=== PATIENT | male | born 1995 | race Caucasian/White ===

== ENCOUNTER 2019-02-12 03:20 | Emergency (ER) | payer SELFPAY ==
[~2019-02-12] VITALS: Ht 152.4 cm; Wt 63.6 kg
[~2019-02-12 03:20] MED LIST: HYDR1TAB PO; OXC5T PO; PRD20T PO; PRM5C60 TP
[2019-02-12] MEDS ORDERED: LACTATED RINGERS 1,000 ML IV ONE (03:27)
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
[2019-02-12 03:36] LABS: HEMOGLOBIN 15.4 G/DL (13.3-17.7); MEAN PLATELET VOLUME 10.1 FL (7.4-10.4); RED CELL DISTRIBUTION WIDTH 13.9 % (10.0-14.5); WHITE BLOOD COUNT 10.9 10^3/uL (4.3-11.0)
[2019-02-12] MEDS ORDERED: TETANUS,DIPTH,PERTUSS P/F (BOOSTRIX) 0.5 ML VIAL IM ONE (03:45)
[2019-02-12 03:57] LABS: ALANINE AMINOTRANSFERASE 11 U/L (0-55); ALBUMIN 4.9 GM/DL (3.2-4.5); ALKALINE PHOSPHATASE 85 U/L (40-136); BILIRUBIN,DIRECT 0.1 MG/DL (0.0-0.3); BILIRUBIN,INDIRECT 0.2 MG/DL; BILIRUBIN,TOTAL 0.3 MG/DL (0.1-1.0); BUN/CREATININE RATIO 9; CALCIUM 9.1 MG/DL (8.5-10.1); CARBON DIOXIDE 17 MMOL/L (21-32); CHLORIDE 111 MMOL/L (98-107); CREATININE SERUM 1.24 MG/DL (0.60-1.30); GFR ESTIMATED > 60; GLUCOSE 94 MG/DL (70-105); POTASSIUM 3.1 MMOL/L (3.6-5.0); SODIUM 144 MMOL/L (135-145)
--- NOTE | 2019-02-12 04:37 | NUR ---
Cervical collar cleared by Dr. Navarrete @ 1112.
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
[2019-02-12 04:48] LABS: BILIRUBIN,URINE NEGATIVE (NEGATIVE); CLARITY,URINE CLEAR; COLOR,URINE YELLOW; GLUCOSE, URINE (UA) NEGATIVE (NEGATIVE); KETONES,URINE NEGATIVE (NEGATIVE); LEUKOCYTE ESTERASE ,URINE NEGATIVE (NEGATIVE); NITRITE,URINE NEGATIVE (NEGATIVE); PH,URINE 6 (5-9); PROTEIN,URINE 2+ (NEGATIVE); UROBILINOGEN,URINE NORMAL (NORMAL)
[2019-02-12 05:02] LABS: AMPHETAMINE SCREEN, URINE NEGATIVE (NEGATIVE); BACTERIA,URINE TRACE /HPF; BARBITURATE SCREEN URINE NEGATIVE (NEGATIVE); BENZODIAZEPINES SCREEN URINE NEGATIVE (NEGATIVE); CANNABINOID SCREEN, URINE POSITIVE (NEGATIVE); COCAINE SCREEN URINE NEGATIVE (NEGATIVE); METHADONE STAT NEGATIVE (NEGATIVE); METHAMPHETAMINE SCREEN URINE S NEGATIVE (NEGATIVE); OPIATE SCREEN URINE NEGATIVE (NEGATIVE); OXYCODONE STAT NEGATIVE (NEGATIVE); PROPOXYPHENE STAT NEGATIVE (NEGATIVE); SQUAMOUS EPITHELIAL CELL,UR RARE /HPF; TRICYCLIC ANTIDEPRESSANTS SCRE NEGATIVE (NEGATIVE); WBC,URINE RARE /HPF
[2019-02-12 05:03] LABS: HYALINE CASTS, URINE RARE /LPF
[2019-02-12 05:11] VITALS: BP 114/83
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
== END 2019-02-12 05:12 ==
LOC: EDUNIT# 03:20 → ER 03:22
DX: S01.01XA Laceration without foreign body of scalp, initial encounter (principal); F90.9 Attention-deficit hyperactivity disorder, unspecified type; F41.9 Anxiety disorder, unspecified; F17.210 Nicotine dependence, cigarettes, uncomplicated; R40.2142 Coma scale, eyes open, spontaneous, at arrival to emergency department; R40.2252 Coma scale, best verbal response, oriented, at arrival to emergency department; R40.2362 Coma scale, best motor response, obeys commands, at arrival to emergency department; Z82.49 Family history of ischemic heart disease and other diseases of the circulatory system; Y04.8XXA Assault by other bodily force, initial encounter
CPT/HCPCS: 12001; 36415; 70450; 70486; 71045; 72125; 80048; 80076; 80306; 80320; 81000; 85027; 90471; 90715; 93041

== ENCOUNTER 2022-03-07 23:56 | Emergency (ER) | payer SELFPAY ==
[2022-03-08 00:01] VITALS: BP 134/98
[2022-03-08] MEDS ORDERED: LIDOCAINE/EPI 2% 1:200,00 (XYLOCAINE) 10 ML VIAL ONE (00:05)
[2022-03-08] MEDS ORDERED: LIDOCAINE/EPI 2% 1:100,00 (XYLOCAINE) 20 ML VIAL INJ ONE (00:15)
[2022-03-08] MEDS ORDERED: TETANUS,DIPTH,PERTUSS P/F (BOOSTRIX) 0.5 ML VIAL IM ONE (00:15)
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
== END 2022-03-08 01:45 | disposition home or self-care (01) ==
LOC: EDUNIT# 23:56 → ER 23:56
DX: S01.81XA Laceration without foreign body of other part of head, initial encounter (principal); F17.210 Nicotine dependence, cigarettes, uncomplicated; Z23 Encounter for immunization; W26.8XXA Contact with other sharp object(s), not elsewhere classified, initial encounter
CPT/HCPCS: 70450; 90471; 90715

== ENCOUNTER 2022-04-24 15:35 | Emergency (ER) | payer SELFPAY ==
[~2022-04-24] VITALS: Ht 165 cm; Wt 68.0 kg
[2022-04-24] MEDS ORDERED: IBUP-1773 PO (16:39)
--- NOTE | 2022-04-24 16:40 | ED GI ---
General Chief Complaint: Abdominal/GI Problems Stated Complaint: ABD PAIN Nursing Triage Note: PT CO OF L INGUINAL HERNIA THAT IS CAUSING PAIN /10, STATES FEELS LIKE GURGLING. STATES MAKES L FOOT GO NUMB Source of Information: Patient Exam Limitations: No Limitations (ADEN CHEEMA APRN) History of Present Illness Date Seen by Provider: Apr 24, 2022 Time Seen by Provider: 15:45 Initial Comments Patient is a 26-year-old male who presents to the emergency department for evaluation of possible left inguinal hernia that is causing him some mild pain. He states he also feels like he intermittently has some numbness in his left groin region. He denies any recent trauma to the area. States he had a hernia on the right side that was repaired several years ago. States the area does get larger with bearing down or certain movements. Denies any redness or significant firmness in the area. Denies any scrotal pain/redness last swelling or difficulty urinating. States bowel movements have been normal. Denies any vomiting or nausea. (ADEN CHEEMA APRN) Allergies and Home Medications Allergies Coded Allergies: No Known Drug Allergies (Unverified , 07/20/13) Patient Home Medication List Home Medication List Reviewed: Yes (ADEN CHEEMA APRN) Ibuprofen (Ibuprofen) 600 Mg Tablet, 600 MG PO Q6H PRN for PAIN-MILD Prescribed by: Aden Cheema on 04/24/22 1639 Oxycodone Hcl (Oxycodone Ir 5MG) 5 Mg Tab, 1 TAB PO Q4H PRN for PRN Prescribed by: [place] GILES on 07/21/13 1204 Review of Systems Review of Systems Constitutional: no symptoms reported EENTM: No Symptoms Reported Respiratory: No Symptoms Reported Cardiovascular: No Symptoms Reported Gastrointestinal: Abdominal Pain Genitourinary: No Symptoms Reported Musculoskeletal: no symptoms reported Skin: no symptoms reported Psychiatric/Neurological: No Symptoms Reported Endocrine: No Symptoms Reported Hematologic/Lymphatic: No Symptoms Reported (ADEN CHEEMA APRN) Past Ekxbaci-Saxjlr-Abkvxa Hx Patient Social History Tobacco Use?: Yes Tobacco type used: Cigarettes Smoking Status: Current Everyday Smoker Substance type: Marijuana Alcohol Use?: Yes Alcohol type: Beer Alcohol Frequency: Rarely Pt feels they are or have been: No (ADEN CHEEMA APRN) Immunizations Up To Date Influenza Vaccine Up-to-Date: No; Not Current First/Initial COVID19 Vaccinat: YES Second COVID19 Vaccination Amrit: YES (ADEN CHEEMA APRN) Past Medical History Surgery/Hospitalization HX: R INGUINAL HERNIA, SURG ON FEET, TEETH, APPY Surgeries: Yes Respiratory: No Cardiac: No Neurological: No Reproductive Disorders: No Sexually Transmitted Disease: No HIV/AIDS: No Gastrointestinal: Yes (elevated liver enzymes) Musculoskeletal: No Endocrine: No Cancer: No Psychosocial: Yes ADD/ADHD, Sleep Difficulties, Anxiety Integumentary: No Blood Disorders: No Adverse Reaction/Blood Tranf: No (ADEN CHEEMA APRN) Family Medical History Alcoholism Cancer Congenital heart disease Congestive heart failure Family history: Arthritis Family history: Cardiovascular disease Family history: Hypertension Heart disease History of drug abuse Visual impairment No Family History of: Abdominal aortic aneurysm Marathon's disease Aphasia Cancer of colon Cataract Chest pain Cystic fibrosis Dementia Dysphagia Family history: Allergy Family history: Alzheimer's disease Family history: Asthma Family history: Breast disease Family history: Coronary thrombosis Family history: Diabetes mellitus Family history: Gastrointestinal disease Family history: Glaucoma Family history: Osteoporosis Family history: Thyroid disorder Headache Hearing loss Hereditary disease History of - anemia History of - disorder History of - respiratory disease Human immunodeficiency virus (HIV) seropositivity Hypercholesterolemia Infertile Kidney disease Malignant neoplasm of lung Myocardial infarction Parkinson's disease Prostate cancer Psychotic disorder Seizure disorder Stroke Tuberculosis No Pertinent Family Hx (ADEN CHEEMA APRN) Physical Exam Vital Signs Vital Signs - First Documented 04/24/22 04/24/22 15:42 16:43 Temp 37.0 Pulse 83 Resp 16 B/P (MAP) 138/92 (107) Pulse Ox 97 O2 Delivery Room Air (SABRINA BOSWELL MD) Vital Signs Capillary Refill : Less Than 3 Seconds (ADEN CHEEMA APRN) Height/Weight/BMI Height: 5'6" Weight: 130lbs. 4.0oz. [id number]; 24.00 BMI Method:Stated General Appearance: WD/WN, no apparent distress HEENT: PERRL/EOMI, normal ENT inspection, TMs normal, pharynx normal Neck: non-tender, full range of motion, supple, normal inspection Respiratory: chest non-tender, lungs clear, normal breath sounds, no respiratory distress, no accessory muscle use Cardiovascular: regular rate, rhythm Gastrointestinal: normal bowel sounds, non tender, soft, hernia Extremities: normal range of motion, non-tender, normal inspection Neurologic/Psychiatric: no motor/sensory deficits, alert, normal mood/affect, oriented x 3 Skin: normal color, warm/dry (ADEN CHEEMA APRN) Procedures/Interventions Suture Size: 4-0 (ADEN CHEEMA APRN) Progress/Results/Core Measures Results/Orders Vital Signs/I&O 04/24/22 04/24/22 15:42 16:43 Temp 37.0 Pulse 83 80 Resp 16 16 B/P (MAP) 138/92 (107) 111/82 Pulse Ox 97 98 O2 Delivery Room Air (SBARINA BOSWELL MD) Blood Pressure Mean: 107 Progress Progress Note : Progress Note Patient is nontoxic and well-hydrated on exam. Obvious left inguinal hernia noted on exam. This does increase in size with Valsalva. This is easily reducible with no signs of strangulation. Vital signs are reassuring. Discussed supportive care and need for follow-up with general surgery to discuss surgical intervention. Return precautions for urgent symptomology discussed. Patient verbalized understanding. (ADEN CHEEMA APRN) Departure Impression Primary Impression: Left inguinal hernia Disposition: 01 HOME, SELF-CARE Condition: Stable Departure-Patient Inst. Decision time for Depature: 16:35 (ADEN CHEEMA APRN) [place]: [facility] [place] Primary Care Physician EDNA LÓPEZ BRETT D DO KIDO, TAKAAKI MD Patient Instructions: Groin Hernia (DC) Scripts Ibuprofen (Ibuprofen) 600 Mg Tablet 600 MG PO Q6H PRN for PAIN-MILD for 10 Days, #30 TAB 0 Refills Prov: ADEN CHEEMA APRN 04/24/22 ATTENDING PHYSICIAN NOTE: I was physically present as attending physician in the emergency department during the care of this patient, but I was not directly involved in the decision making or delivery of care for this patient. (SABRINA BOSWELL MD) ADEN CHEEMA APRN Apr 24, 2022 16:40 SABRINA BOSWELL MD Apr 26, 2022 07:25
[2022-04-24 16:43] VITALS: BP 111/82
== END 2022-04-24 16:43 | disposition home or self-care (01) ==
LOC: EDUNIT# 15:35 → ER 15:39
DX: K40.90 Unilateral inguinal hernia, without obstruction or gangrene, not specified as recurrent (principal); Z90.49 Acquired absence of other specified parts of digestive tract; F17.210 Nicotine dependence, cigarettes, uncomplicated; Z28.310 Unvaccinated for COVID-19
CPT/HCPCS: 99281